=== PATIENT | female | born 1960 | race Caucasian/White ===

== ENCOUNTER 2022-04-24 13:24 | Outpatient (CLI) | payer OTHER | END 2022-04-24 13:25 | disposition home or self-care (01) | LOC: MRI 13:24 | PROVIDERS: ATTEND Orthopaedic Surgery | DX: M23.91 Unspecified internal derangement of right knee (principal); S83.231A Complex tear of medial meniscus, current injury, right knee, initial encounter; S83.281A Other tear of lateral meniscus, current injury, right knee, initial encounter; M17.11 Unilateral primary osteoarthritis, right knee ==

== ENCOUNTER 2022-05-13 12:18 | Outpatient (CLI) | payer OTHER ==
[2022-05-13 13:20] LABS: #Basophils 0.1 10x3/uL (0.0-0.2); #Eosinphils 0.1 10x3/uL (0.0-0.5); #Monocytes 0.4 10x3/uL (0.0-1.1); #Neutrophils 3.2 10x3/uL (1.5-8.4); %Basophils 1.3 % (0.0-2.0); %Eosinophils 1.9 % (0.0-6.0); %Lymphocytes 36.4 % (18.0-47.0); %Monocytes 6.6 % (0.0-10.0); %Neutrophils 53.5 % (40.0-75.0); Mean Corpuscular HGB CONC 33.4 g/dL (32.0-36.0); Mean Corpuscular Hemoglobin 30.2 pg (27.0-33.0); Mean Corpuscular Volume 90.5 fl (81.6-98.3); Mean Platelet Volume 11.8 fl (7.4-10.4); Platelet Count 247 10x3/uL (150-450); RBC Distribution Width 12.9 % (11.5-14.5); Red Blood Cell (RBC) Count 4.63 10x6/uL (3.90-5.03); White Blood Cell (WBC) Count 5.9 10x3/uL (3.5-10.5)
== END 2022-05-13 12:19 | disposition home or self-care (01) ==
LOC: LABBT 12:18
PROVIDERS: ATTEND Orthopaedic Surgery
DX: Z01.818 Encounter for other preprocedural examination (principal); S83.241A Other tear of medial meniscus, current injury, right knee, initial encounter; S83.281A Other tear of lateral meniscus, current injury, right knee, initial encounter; Z20.822 Contact with and (suspected) exposure to COVID-19
CPT/HCPCS: 85025; 87811; 93005; 93010

== ENCOUNTER 2023-11-19 00:13 | Inpatient (IN) | payer OTHER ==
[2023-11-19] MEDS ORDERED: Acetaminophen 650 MG Suppository PR PRN (02:25)
[2023-11-19] MEDS ORDERED: Acetaminophen 325 MG TAB PO PRN (02:25)
[2023-11-19] MEDS ORDERED: Sodium Chloride 0.9% 1,000 ML IV SCH (02:30)
[2023-11-19 02:46] VITALS: BMI 23.2
[2023-11-19] MEDS: Morphine 4 MG/ML VIAL SLOW IVP PRN (02:55)
[2023-11-19] MEDS: Ondansetron PF 4 MG/2 ML Vial IVP PRN (02:55)
[2023-11-19] MEDS: Sodium Chloride 0.9% 500 ML IV SCH (02:56)
[2023-11-19] MEDS: Sodium Chloride 0.9% 1,000 ML IV SCH (04:29)
[2023-11-19 05:04] LABS: #Basophils 0.1 thou/uL (0.0-0.2); #Monocytes 1.2 thou/uL (0.11-0.59); #Neutrophils 13.5 thou/uL (1.40-6.50); %Basophils 0.3 % (0.0-1.0); %Monocytes 7.4 % (0.0-10.0); %Neutrophils 84.9 % (42.0-75.0); Hematocrit 44.7 % (36.0-47.0); Hemoglobin 14.7 g/dL (12.0-16.0); Mean Corpuscular HGB CONC 32.9 g/dL (32.0-36.0); Mean Corpuscular Volume 91.2 fl (78.0-98.0); Mean Platelet Volume 11.8 fL (7.4-10.4); Platelet Count 288 10x3/uL (130-400); RBC Distribution Width 12.4 % (11.5-14.5); White Blood Cell (WBC) Count 15.9 10x3/uL (4.8-10.8)
[2023-11-19 05:28] LABS: Anion Gap 15 mmol/L (10-20); BUN (Urea Nitrogen) 10 mg/dL (9.8-20.1); Calc. Creatinine Clearance 95 mL/min (70-130); Calcium 9.8 mg/dL (7.8-10.44); Carbon Dioxide 27 mmol/L (23-31); Chloride 102 mmol/L (98-107); Estimated GFR 95; Glucose 156 mg/dL (80-115); Potassium 4.8 mmol/L (3.5-5.1); Sodium 139 mmol/L (136-145)
[2023-11-19] MEDS: Ondansetron ODT 4 MG TAB PO PRN (06:54)
[2023-11-19 09:07] LABS: ALT (SGPT) 18 U/L (8-55); AST (SGOT) 16 U/L (5-34); Albumin 4.2 g/dL (3.4-4.8); Alkaline Phosphatase 100 U/L (40-110); Bilirubin, Direct 0.3 mg/dL (0.1-0.3); Bilirubin, Total 0.6 mg/dL (0.2-1.2); Protein, Total 7.5 g/dL (5.8-8.1)
[2023-11-19] MEDS: HYDROcodone/Acetaminophen 10/325 mg Tablet PO SCH (09:27)
[2023-11-19] MEDS ORDERED: Piperacillin/Tazobactam 3.375 GM in Sodium Chloride 0.9% 100 ML IVPB SCH ×2 (14:00→18:00)
[2023-11-19] MEDS ORDERED: Morphine 10 MG/ML VIAL SLOW IVP PRN (16:00)
[2023-11-19] MEDS ORDERED: Morphine 2 MG/ML VIAL ONE (16:23)
[2023-11-19] MEDS ORDERED: Sodium Chloride 0.9% 100 ML ONE (16:23)
[2023-11-19] MEDS ORDERED: Piperacillin/Tazobactam 3.375 GM VIAL ONE (16:23)
[2023-11-19] MEDS ORDERED: PROPOFOL 20 ML ONE (16:36)
[2023-11-19] MEDS ORDERED: SUCCINYLCHOLINE/SOD CL,ISO/PF 200 MG/10 ML SYRINGE FS ONE (16:36)
[2023-11-19] MEDS ORDERED: Lidocaine 1% PF 5 ML VIAL ONE (16:36)
[2023-11-19] MEDS ORDERED: Ondansetron PF 4 MG/2 ML Vial ONE ×2 (16:36→18:18)
[2023-11-19] MEDS ORDERED: Rocuronium Bromide 10 MG/ML (10ML VIAL) ONE (16:37)
[2023-11-19] MEDS ORDERED: Dexamethasone 20 MG/5 ML VIAL ONE (16:37)
[2023-11-19] MEDS: Piperacillin/Tazobactam 3.375 GM in Sodium Chloride 0.9% 100 ML IVPB SCH ×2 (16:42→21:02)
[2023-11-19] MEDS ORDERED: fentaNYL PF 100 MCG/2 ML SYRINGE ONE (17:07)
[2023-11-19] MEDS ORDERED: Midazolam HCl 2 mg/2 ml Vial ONE (17:07)
[2023-11-19] MEDS ORDERED: Famotidine/PF 20 mg/2ml Vial ONE (17:09)
[2023-11-19] MEDS ORDERED: EPINEPHrine 1 MG/ML VIAL ONE (17:11)
[2023-11-19] MEDS ORDERED: Bupivacaine 0.25% HCL 30 ML VIAL ONE (17:12)
[2023-11-19] MEDS ORDERED: Metoclopramide HCl 10 MG (2 mL) VIAL ONE (17:41)
[2023-11-19] MEDS ORDERED: Phenylephrine 10 MG/ML VIAL ONE ×2 (17:48→18:33)
[2023-11-19] MEDS ORDERED: SUGAMMADEX SODIUM 200 MG/2 ML VIAL ONE (18:18)
[2023-11-19] MEDS ORDERED: Ketorolac Tromethamine 30 MG/ML VIAL IVP PRN (19:14)
[2023-11-19] MEDS ORDERED: PACU-Morphine 4MG/ML VIAL SLOW IVP PRN (19:14)
[2023-11-19] MEDS ORDERED: Promethazine HCl 25 MG/ML VIAL IM PRN (19:14)
[2023-11-19] MEDS ORDERED: Morphine Sulfate 2 MG/ML SYRINGE SLOW IVP PRN (19:14)
[2023-11-19] MEDS ORDERED: Ondansetron HCl/PF 4 MG/2 ML Vial IVP PRN (19:14)
[2023-11-19] MEDS ORDERED: Ketorolac Tromethamine 30 MG (1 mL) VIAL ONE (19:39)
[2023-11-20 06:17] LABS: #Neutrophils 13.6 thou/uL (1.40-6.50); %Basophils 0.1 % (0.0-1.0); %Lymphocytes 6.1 % (21.0-51.0); %Monocytes 6.1 % (0.0-10.0); %Neutrophils 87.1 % (42.0-75.0); Hematocrit 36.2 % (36.0-47.0); Hemoglobin 11.9 g/dL (12.0-16.0); Mean Corpuscular HGB CONC 32.9 g/dL (32.0-36.0); Mean Corpuscular Hemoglobin 30.7 pg (27.0-31.0); Mean Corpuscular Volume 93.3 fl (78.0-98.0); Mean Platelet Volume 12.3 fL (7.4-10.4); Platelet Count 241 10x3/uL (130-400); RBC Distribution Width 12.8 % (11.5-14.5); Red Blood Cell (RBC) Count 3.88 mill/uL (4.20-5.40); White Blood Cell (WBC) Count 15.6 10x3/uL (4.8-10.8)
[2023-11-20 06:46] LABS: ALT (SGPT) 33 U/L (8-55); AST (SGOT) 46 U/L (5-34); Albumin 3.2 g/dL (3.4-4.8); Alkaline Phosphatase 69 U/L (40-110); Anion Gap 13 mmol/L (10-20); BUN (Urea Nitrogen) 12 mg/dL (9.8-20.1); Bilirubin, Total 0.8 mg/dL (0.2-1.2); Calc. Creatinine Clearance 95 mL/min (70-130); Calcium 8.7 mg/dL (7.8-10.44); Carbon Dioxide 25 mmol/L (23-31); Chloride 106 mmol/L (98-107); Estimated GFR 95; Globulin 2.6 g/dL (2.4-3.5); Glucose 143 mg/dL (80-115); Protein, Total 5.8 g/dL (5.8-8.1); Sodium 140 mmol/L (136-145)
[2023-11-20 09:42] VITALS: BP 115/75; TEMP 98.6
[2023-11-20] MEDS: Acetaminophen/Codeine 30-300mg Tablet PO PRN (11:56)
== END 2023-11-20 12:00 | disposition home or self-care (01) | DRG 419 ==
LOC: MSONC 01:56
PROVIDERS: ADMIT Student in an Organized Health Care Education/Training Program; ATTEND Internal Medicine
PROC: 0FT44ZZ Resection of Gallbladder, Percutaneous Endoscopic Approach (ICD-10-PCS; principal; 2023-11-19)
PROC: 3E033XZ Introduction of Vasopressor into Peripheral Vein, Percutaneous Approach (ICD-10-PCS; 2023-11-19)
DX: K81.0 Acute cholecystitis (principal); K82.8 Other specified diseases of gallbladder; I10 Essential (primary) hypertension; H40.9 Unspecified glaucoma; K83.8 Other specified diseases of biliary tract; Z79.82 Long term (current) use of aspirin; Z79.899 Other long term (current) drug therapy
CPT/HCPCS: 36415; 74183; 76705; 80048; 80053; 80076; 85025; 88304; C1889; J0171; J0665; J1100; J1885; J2250; J2270; J2272; J2371; J2405; J2543; J2704; J2765; J3490; J7030; J7050; Q0162; S0028